=== PATIENT | female | born 1985 | race Caucasian/White ===

== ENCOUNTER 2016-11-06 16:46 | Inpatient (IN) | payer BC ==
[~2016-11-06] VITALS: Ht 162.6 cm; Wt 90.5 kg
--- NOTE | 2016-11-06 16:56 | NUR ---
PT IS A 31 YEAR OLD FEMALE, PRESNETS TO ED VIA [facility] FROM HOME ON A 5150 FOR OD WITH SUICIDAL IDEATION. PER MEDIC, PT TOOK HANDFUL OF CLONAZEPAM 1MG AT 1545 TODAY, APPROX 30 TABS. PER MEDIC, PT TOOK PILLS AND IMMEDIATELY TOLD BROTHER, BROTHER CALLED 911, PT WENT OUTSIDE AND LAID IN CHAIR, PT A/O X4. SPEECH SLIGHTLY SLURRED. PT REPORTS FEELING TIRED. PT DENIES ANY N/V/D/C. PT BREATHING IS EVEN AND UNLABORED, NO S/S OF RESPRAITORY DISTRESS. SPEECH IS APPRORPIATE. PT COOPERATIVE. PT HOOKED TO FULL TITLE SUPERVISOR. ALL OF PTS BELONGINGS REMOVED FROM PT AND PLACED IN RADIO ROOM AND LABELED. PT APOLOGIZING FOR HER ACTIONS AND STATING "I DONT WANT TO , IM SORRY FOR WHAT I DID." PT AWIAITING MSE.
--- NOTE | 2016-11-06 17:04 | NUR ---
PT IN DIRECT OBSERVATION OF NURSES STATION, WILL CONTINUE TO MONITOR CLOSELY.
--- NOTE | 2016-11-06 17:14 | NUR ---
SPOKE WITH LUIS LOPEZ FROM POISON CONTROL, INFORMED ME TO DO A METABOLIC PANEL, CHECK ASA, AND CHECK ACETAMINOPHEN. REPORTED MOSTLY HEAD WELL PULLER DEPRESSION AND POSSIBLE RESPIRATORY DEPRESSSION IF MEDICATION WAS MIXED WITH ALCOHOL. MINIMUM OF 5 HRS OBSERVATION. UDS MAY NOT SHOW POSITIVE FOR BENZODIAZEPINES. REPORTED NOT TO USE FLUMAZENIL DUE TO POSSIBLY PUTTING PT INTO WITHDRAWAL SYMPTOMS.
[2016-11-06 17:21] LABS: AMPHETAMINE QUAL UR NONE DETECTED (NEG <=1000)
--- NOTE | 2016-11-06 18:04 | NUR ---
PTS MOTHER AT BEDSIDE.
[2016-11-06 18:05] LABS: BASOPHIL % 0.5 % (0-2); PLATELET COUNT 307 x10^3mcL (130-400)
[2016-11-06 18:12] LABS: RED CELL DISTRIBUTION WIDTH 17.8 % (11.5-14.5)
[2016-11-06 18:13] LABS: CALCIUM 8.4 mg/dL (8.5-10.1); CARBON DIOXIDE 28.6 mmol/L (21-32); CHLORIDE SERUM 104 mmol/L (98-107); CREATININE SERUM 0.9 mg/dL (0.6-1.0); GFR1 > 60 mL/min; GLUCOSE SERUM 107 mg/dL (74-106); POTASSIUM SERUM 3.7 mmol/L (3.5-5.1); SODIUM SERUM 141 mmol/L (136-145)
[2016-11-06 18:18] LABS: ALBUMIN 3.4 g/dL (3.4-5.0); ALKALINE PHOSPHATASE 71 U/L (46-116); ALT/SGPT 27 U/L (14-59); AST/SGOT 18 U/L (15-37); BILIRUBIN TOTAL 0.2 mg/dL (0.20-1.00); MAGNESIUM 1.9 mg/dL (1.8-2.4); TOTAL PROTEIN, SERUM 7.4 g/dL (6.4-8.2)
[2016-11-06 18:41] LABS: UA SPECIFIC GRAVITY 1.025 (1.005-1.035); microscopic required? YES; urine erythrocyte TRACE (NEGATIVE)
--- NOTE | 2016-11-06 18:41 | NUR ---
MOTHER SWITCHED OUT WITH PTS FATHER.
[2016-11-06] MEDS ORDERED: CLONAZEPAM1 MG PO (19:10)
[2016-11-06] MEDS ORDERED: ELMIRON100 MG PO (19:11)
[2016-11-06] MEDS ORDERED: ZOLOFT100 MG PO (19:12)
--- NOTE | 2016-11-06 19:15 | NUR ---
PATENT SEEN RESTING, FAMILY AT THE BEDSIDE.
[2016-11-06 21:03] LABS: AMYLASE 60 U/L (25-115); HDL CHOLESTEROL 38 mg/dL (40-60); LIPASE 172 IU/L (73-393); PHOSPHOROUS 3.6 mg/dL (2.5-4.9)
[2016-11-06 21:04] LABS: CHOLESTEROL 241 mg/dL (<200); CHOLESTEROL/HDL RATIO 6.3; TRIGLYCERIDES 553 mg/dL (<150)
[2016-11-06 21:06] LABS: T3 TOTAL 0.84 ng/mL
[2016-11-06 21:11] LABS: FREE T4 0.71 ng/dL (0.76-1.46)
[2016-11-06 21:31] LABS: FREE THYROXINE INDEX 1.5 ug/dL (1.4-4.5); T4(THYROXINE) 4.5 ug/dL (4.7-13.3)
--- NOTE | 2016-11-06 21:35 | NUR ---
REPORT WAS GIVEN TO GOKUL, PATIENT TRANSPORTED TO ROOM 219B
--- NOTE | 2016-11-06 22:00 | NUR ---
RECEIVED PT FROM ED VIA [employer], PT TOOK 40 PILLS OF KLONOPIN. AAOX4. C/O 8/10 TENSION HEADACHE AND NECK PAIN. C/O MILD SOB AND CHEST TIGHTNESS AT TIMES. NO SOB NOTED, ON 2LPM/NC, O2 KOE=134%. DENIES CHEST PAIN/PRESSURE, NSR ON THE MONITOR. DENIES ABDOMINAL DISCOMFORT. VSS. IV SITE PATENT AND INTACT. SIDE RAILS UPX2. CALL LIGHT ON REACH. PRIMARY NURSE GOKUL AT BEDSIDE FOR CONTINUITY OF CARE
[2016-11-06 22:05] VITALS: BP 111/72
[2016-11-06 22:09] VITALS: Ht 162.6 cm; Wt 90.5 kg
--- NOTE | 2016-11-06 22:10 | NUR ---
RECEIVED PT FROM ER VIA [employer] ACCOMPANIED WITH NURSE, EMT AND PT'S MOTHER, PT ALERT AND ORIENTED, C/O OF HEADACHE AND REQUESTED FOR ICE PACKS, IVF INFUSING WELL, ON TELE#24 NSR, ON O2 2L VIA NC WITH NO RESP DISTRESS OR SOB NOTED, NO DISTRESS NOTED, HARNESS MENDER AT BEDSIDE WITH ASSIST, WILL KEEP TO MONITOR.
--- NOTE | 2016-11-06 22:20 | NUR ---
SPOKE WITH DR SCANLON, PER DR SCANLON THAT PT OKAY TO HAVE FOOD AT THIS TIME.
--- NOTE | 2016-11-06 23:08 | NUR ---
SPOKE WITH RIVERA FROM POISON CONTROL, UPDATED THE LASTEST VITAL SIGN AND ALL THE LABS, PER RIVERA SHE WILL GO AHEAD TO CLOSED THE CASE AT THIS TIME.
--- NOTE | 2016-11-07 00:40 | NUR ---
K-PAD APPLIED FOR PT'S NECK PAIN.
[2016-11-07 00:54] LABS: BASOPHIL % 0.4 % (0-2); PLATELET COUNT 285 x10^3mcL (130-400)
[2016-11-07 00:57] LABS: RED CELL DISTRIBUTION WIDTH 17.4 % (11.5-14.5)
--- NOTE | 2016-11-07 05:37 | NUR ---
PT ASLEEP BUT EASILY AROUSABLE, SLEPT ON AND OFF WHOLE NIGHT, IVF INFUSING WELL, BREATHING EVEN AND UNLABORED WITH O2 2L VIA NC, MOTHER AT BEDSIDE, FORGING ROLL OPERATOR AT BEDSIDE WIT ASSIST, NO DISTRESS NOTED, WILL KEEP TO MONITOR.
[2016-11-07 05:59] VITALS: BP 113/72
[2016-11-07 07:05] LABS: BASOPHIL % 0.6 % (0-2); PLATELET COUNT 263 x10^3mcL (130-400)
[2016-11-07 07:11] LABS: CARBON DIOXIDE 28.7 mmol/L (21-32); CHLORIDE SERUM 107 mmol/L (98-107); CREATININE SERUM 0.8 mg/dL (0.6-1.0); GFR1 > 60 mL/min; GLUCOSE SERUM 92 mg/dL (74-106); SODIUM SERUM 142 mmol/L (136-145)
[2016-11-07 07:13] LABS: ALBUMIN 3.2 g/dL (3.4-5.0)
--- NOTE | 2016-11-07 07:30 | NUR ---
Received patient asleep with ice pack to the neck, arousable, no complaint, mother remain at bedside. IV intact, update POC. Sitter at bedside for "4060".
--- NOTE | 2016-11-07 09:27 | NUR ---
PATIENT RESTING IN BED NO ACUTE DISTRESS NOTED, C/O HEADACHE 12/02 TYLENOL 650MG PO GIVEN, DUE MEDS GIVEN, PATIENT REQUEST FOR TEAR DROPS WILL GET ORDER FOR DOCTOR. MOTHER REMAIN AT BEDSIDE. SITTER AT BEDSIDE.
--- NOTE | 2016-11-07 10:48 | NUR ---
Page Dr. Devi per patient's request for eye drop, Elsie, and Pilosec; per Dr. Lynch will put in orders.
[2016-11-07 10:50] VITALS: BP 112/62
--- NOTE | 2016-11-07 13:04 | NUR ---
DUE MEDS GIVEN, PATIENT DOZING OFF NO ACUTE DISTRESS NOTED. SAVE LUNCH TRAY FOR LATER. SITTER REMAIN AT BEDSIDE.
--- NOTE | 2016-11-07 15:07 | NUR ---
Patient resting in bed no acute distress noted, states headache is relief with Tylenol and ice pack; father at bedside with patient, cont to monitor.
--- NOTE | 2016-11-07 17:09 | NUR ---
PATIENT UP TO BATHROOM AND BACK TO BED DENIES PAIN AT THIS TIME, MOTHER REMAIN AT BEDSIDE, DUE MEDS GIVEN; PER PATIENT DR. LIZARRAGA SAY OKAY TO GO HOME IF PATIENT MEDICALLY CLEAR. WILL ASK DR. SOLOMON PATIENT WANT TO GO HOME.
--- NOTE | 2016-11-07 17:09 | NUR ---
SPOKE TO (RESIDENT) ASSIGNED TO THIS PT AND SAID SINCE PT IS CLEARED BY PSYCH, PT WILL BE DISCHARGE HOME TODAY. XAVI CALABRESE ASSIGNED TO THIS PT MADE AWARE OF ABOVE.
[2016-11-07 17:12] VITALS: BP 112/62
--- NOTE | 2016-11-07 17:14 | NUR ---
UPDATE PATIENT AND MOTHER DR. SOLOMON IS WORKING ON DISCHARGE.
[2016-11-07] MEDS ORDERED: CLA10 PO (17:19)
[2016-11-07] MEDS ORDERED: FER300 PO (17:20)
[2016-11-07] MEDS ORDERED: VITAMIN C PURE500 M1 PO (17:21)
--- NOTE | 2016-11-07 17:59 | NUR ---
Patient calm alert and oriented x 4, denies headache, no acute distress noted, give discharge instruction to patient and mother, patient verbalize understand will sweet pickle maker medications from [facility] in [address] and f/u appt with PCP. IV dc'd and intact. All belongings checks with patient, [facility] med return to patient. Instruct patient to call when ready to leave.
--- NOTE | 2016-11-07 18:21 | NUR ---
PATIENT IS WHEEL OUT BY [employer] ELECTRICAL ENGINEERING OFFICER WITH MOTHER ACCOMPANIED. TELE BOX RETURN TO TELE ROOM.
== END 2016-11-07 18:25 | disposition home or self-care (01) | DRG 917 ==
LOC: ED 16:46 → DU 19:03
PROVIDERS: Emergency Medicine; ADMIT Family Medicine
DX: T42.4X2A Poisoning by benzodiazepines, intentional self-harm, initial encounter (principal); G92 Toxic encephalopathy; R45.851 Suicidal ideations; E44.1 Mild protein-calorie malnutrition; Y92.018 Other place in single-family (private) house as the place of occurrence of the external cause; F12.10 Cannabis abuse, uncomplicated; E83.51 Hypocalcemia; F32.9 Major depressive disorder, single episode, unspecified; E78.5 Hyperlipidemia, unspecified; D50.9 Iron deficiency anemia, unspecified; F17.210 Nicotine dependence, cigarettes, uncomplicated; Z68.34 Body mass index [BMI] 34.0-34.9, adult; I10 Essential (primary) hypertension; K21.9 Gastro-esophageal reflux disease without esophagitis
CPT/HCPCS: 80307; 83880; 84439; C9113; G0480; J7030

== ENCOUNTER 2018-03-11 03:09 | Emergency (ER) | payer BC ==
[~2018-03-11] VITALS: Ht 162.6 cm; Wt 102.1 kg
[~2018-03-11 03:09] MED LIST: CLA10 PO; CLONAZEPAM1 MG PO; ELMIRON100 MG PO; FER300 PO; VITAMIN C PURE500 M1 PO; ZOLOFT100 MG PO
[2018-03-11 03:27] VITALS: BP 126/92; Ht 162.6 cm; Wt 102.1 kg
== END 2018-03-11 04:04 | disposition home or self-care (01) ==
LOC: ED 03:09
DX: Z76.0 Encounter for issue of repeat prescription (principal); F41.9 Anxiety disorder, unspecified; J45.909 Unspecified asthma, uncomplicated; Z87.42 Personal history of other diseases of the female genital tract; Z87.448 Personal history of other diseases of urinary system

== ENCOUNTER 2018-06-21 01:29 | Emergency (ER) | payer BC ==
[~2018-06-21] VITALS: Ht 162.6 cm; Wt 103.4 kg
[2018-06-21 01:38] VITALS: Ht 162.6 cm; Wt 103.4 kg
[2018-06-21 02:29] LABS: BASOPHIL % 0.4 % (0-2); PLATELET COUNT 244 x10^3mcL (130-400); RED CELL DISTRIBUTION WIDTH 13.4 % (11.5-14.5)
[2018-06-21 02:45] LABS: CALCIUM 8.6 mg/dL (8.5-10.1); CARBON DIOXIDE 23.2 mmol/L (21-32); CHLORIDE SERUM 99 mmol/L (98-107); CREATININE SERUM 0.7 mg/dL (0.6-1.0); GFR1 > 60 mL/min; GLUCOSE SERUM 118 mg/dL (74-106); POTASSIUM SERUM 4.2 mmol/L (3.5-5.1); SODIUM SERUM 135 mmol/L (136-145)
[2018-06-21 02:50] LABS: ALBUMIN 3.7 g/dL (3.4-5.0); ALKALINE PHOSPHATASE 64 U/L (46-116); ALT/SGPT 42 U/L (14-59); AST/SGOT 35 U/L (15-37); BILIRUBIN TOTAL 0.28 mg/dL (0.20-1.00); TOTAL PROTEIN, SERUM 7.7 g/dL (6.4-8.2)
[2018-06-21 03:34] VITALS: BP 140/61
== END 2018-06-21 03:34 | disposition home or self-care (01) ==
LOC: ED 01:29
PROVIDERS: Emergency Medicine
DX: N80.9 Endometriosis, unspecified (principal); J45.909 Unspecified asthma, uncomplicated; F41.9 Anxiety disorder, unspecified; K21.9 Gastro-esophageal reflux disease without esophagitis; Z98.890 Other specified postprocedural states
CPT/HCPCS: J2405; J7030

== ENCOUNTER 2019-03-09 20:48 | Emergency (ER) | payer BC ==
[~2019-03-09] VITALS: Ht 162.6 cm; Wt 90.7 kg
[2019-03-09 22:27] LABS: BASOPHIL % 0.4 % (0-2); PLATELET COUNT 270 x10^3mcL (130-400)
[2019-03-09 22:40] LABS: CALCIUM 8.4 mg/dL (8.5-10.1); CARBON DIOXIDE 26.3 mmol/L (21-32); CHLORIDE SERUM 104 mmol/L (98-107); CREATININE SERUM 0.8 mg/dL (0.6-1.0); GFR1 > 60 mL/min; GLUCOSE SERUM 95 mg/dL (74-106); POTASSIUM SERUM 3.7 mmol/L (3.5-5.1); SODIUM SERUM 141 mmol/L (136-145)
[2019-03-09 22:44] LABS: ALBUMIN 3.7 g/dL (3.4-5.0); ALKALINE PHOSPHATASE 81 U/L (46-116); ALT/SGPT 35 U/L (14-59); AST/SGOT 18 U/L (15-37); BILIRUBIN TOTAL 0.3 mg/dL (0.20-1.00); TOTAL PROTEIN, SERUM 7.4 g/dL (6.4-8.2)
[2019-03-09 22:50] LABS: CHOLESTEROL 208 mg/dL (<200)
[2019-03-10 10:57] VITALS: BP 111/76
== END 2019-03-10 10:57 | disposition short-term general hospital (02) ==
LOC: ED 20:48
PROVIDERS: Emergency Medicine
DX: T14.91XA Suicide attempt, initial encounter (principal); X83.8XXA Intentional self-harm by other specified means, initial encounter; Y93.89 Activity, other specified; Y92.89 Other specified places as the place of occurrence of the external cause; Y99.8 Other external cause status; N80.9 Endometriosis, unspecified
CPT/HCPCS: G0480; J1200; J1630; J1885; J2060; J2270; J2405; J7030